=== PATIENT | male | born 1955 | race Caucasian/White ===

== ENCOUNTER 2018-02-27 02:56 | Emergency (ER) | payer OTHER ==
[2018-02-27 03:25] LABS: HEMATOCRIT 37.7 % (42.0-52.0); HEMOGLOBIN 12.8 g/dl (13.5-17.5); MEAN CORPUSCULAR HEMOGLOBIN 30.3 pg (27.0-33.0); MEAN CORPUSCULAR VOLUME 89.3 fl (80.0-96.0); PLATELET COUNT, AUTOMATED 299 10^3/uL (150-450); RED BLOOD COUNT 4.22 10^6/uL (4.30-6.10); RED CELL DISTRIBUTION WIDTH 13.1 % (11.5-14.5); WHITE BLOOD COUNT 10.8 10^3/uL (4.0-10.0)
[2018-02-27 03:44] LABS: AMPHETAMINES LEVEL URINE NEGATIVE (NEGATIVE); BARBITURATES URINE NEGATIVE (NEGATIVE); BENZODIAZEPINES URINE NEGATIVE (NEGATIVE); CANNABINOIDS URINE NEGATIVE (NEGATIVE); COCAINE METABOLITE URINE NEGATIVE (NEGATIVE); METHADONE URINE NEGATIVE (NEGATIVE); OPIATES URINE NEGATIVE (NEGATIVE); PHENCYCLIDINE URINE NEGATIVE (NEGATIVE)
[2018-02-27 03:56] LABS: ALBUMIN 3.9 GM/DL (3.2-5.2); ALBUMIN/GLOBULIN RATIO 1.05 (1.00-1.93); ALKALINE PHOSPHATASE 49 U/L (45-117); ALT/SGPT 21 U/L (12-78); ANION GAP 13 MEQ/L (8-16); AST/SGOT 20 U/L (7-37); BILIRUBIN,DIRECT < 0.1 MG/DL (0.0-0.2); BILIRUBIN,TOTAL 0.3 MG/DL (0.2-1.0); BLOOD UREA NITROGEN 17 MG/DL (7-18); CARBON DIOXIDE LEVEL 21 MEQ/L (21-32); CHLORIDE LEVEL 105 MEQ/L (98-107); CREATININE FOR GFR 1.47 MG/DL (0.70-1.30); ETHYL ALCOHOL (ETHANOL) 0.134 % (0.000-0.010); GLOMERULAR FILTRATION RATE 51.5 (>49); GLUCOSE, FASTING 93 MG/DL (70-100); POTASSIUM SERUM 3.8 MEQ/L (3.5-5.1); SALICYLATE LEVEL 6.5 MG/DL (5.0-30.0); SODIUM LEVEL 139 MEQ/L (136-145); TOTAL PROTEIN 7.6 GM/DL (6.4-8.2)
[2018-02-27 03:59] LABS: ACETAMINOPHEN LEVEL < 2.0 UG/ML (10.0-30.0)
[2018-02-27 16:15] LABS: ETHYL ALCOHOL (ETHANOL) < 0.003 % (0.000-0.010)
[2018-02-27] MEDS: TERAZOSIN 5 MG CAP PO (21:00)
[2018-02-27] MEDS: GABAPENTIN 300 MG CAP PO (21:17)
[2018-02-27] MEDS: OMEPRAZOLE 20 MG CAP PO (21:17)
[2018-02-27] MEDS: TOPIRAMATE (TopAMAX) 100 MG TAB PO (21:17)
[2018-02-27] MEDS: MIRTAZAPINE 15 MG TAB PO (21:17)
== END 2018-02-28 08:18 ==
LOC: M ED 02-28 08:18
DX: F33.9 Major depressive disorder, recurrent, unspecified (principal); F10.129 Alcohol abuse with intoxication, unspecified; R45.851 Suicidal ideations; E11.9 Type 2 diabetes mellitus without complications; I10 Essential (primary) hypertension; G47.33 Obstructive sleep apnea (adult) (pediatric); N40.0 Benign prostatic hyperplasia without lower urinary tract symptoms; M54.5 Low back pain; G89.29 Other chronic pain; F17.200 Nicotine dependence, unspecified, uncomplicated; Z79.82 Long term (current) use of aspirin; Z79.899 Other long term (current) drug therapy
CPT/HCPCS: 93005

== ENCOUNTER 2018-11-17 09:27 | Day surgery (SDC) | payer OTHER ==
[~2018-11-17] VITALS: Ht 157.5 cm; Wt 73.0 kg
[~2018-11-17 09:27] MED LIST: ACET500C PO; AMLO10TA5 PO; AMLO25TA PO; ASPI81TA85 PO; ATOR40TA75 PO; CYCL10TA PO; FENO145T13 PO; FINA5TAB2 PO; FLUN25SP; FOLI1TAB11 PO; GABA-843 PO; HYDR25TAB PO; LISI10TA4 PO; LISI40TAB PO; LORA-243 PO; MAGN400T5 PO; METO10TA2 PO; MIRT30TA3 PO; MULTTAB63 PO; NS 1,000 ML IV ONE; OMEG100011 PO; OMEP20CA3 PO; PATIENT COMMENTS; ROSU40TA3 PO; SERT-155 PO; TERA10CA3 PO; THIA100T7 PO; TOPI100T9 PO; TYLE325C PO; VITA-182 PO; folic acid; vitamin b1
[2018-11-17] MEDS ORDERED: LIDOCAINE 2% INJ 100 MG/5 ML SDV (FOR ANES.) As Ordered ONE (10:39)
[2018-11-17] MEDS ORDERED: PROPOFOL 200 MG/20 ML VIAL As Ordered ONE (10:39)
--- NOTE | 2018-11-17 10:51 | ROOR ---
Patient Name: Kiran Maldonado Procedure Date: 11/17/2018 10:25 AM Date of : 1955 Age: 62 Room: [facility] Gender: Male Note Status: Finalized Procedure: Colonoscopy Indications: Screening for colorectal malignant neoplasm Providers: DO Mario Klein MD: Luis Brice Md Requesting Provider: Medicines: Propofol per Anesthesia Complications: No immediate complications. Procedure: Pre-Anesthesia Assessment: - Prior to the procedure, a History and Physical was performed, and patient medications and allergies were reviewed. The patient is competent. The risks and benefits of the procedure and the sedation options and risks were discussed with the patient. All questions were answered and informed consent was obtained. Patient identification and proposed procedure were verified by the physician, the nurse, the set o type operator and the controls technician in the endoscopy suite. Mental Status Examination: alert and oriented. Airway Examination: normal oropharyngeal airway and neck mobility. Respiratory Examination: clear to auscultation. CV Examination: normal. Prophylactic Antibiotics: The patient does not require prophylactic antibiotics. Prior Anticoagulants: The patient has taken no previous anticoagulant or antiplatelet agents. ASA Grade Assessment: II - A patient with mild systemic disease. After reviewing the risks and benefits, the patient was deemed in satisfactory condition to undergo the procedure. The anesthesia plan was to use monitored anesthesia care (MAC). Immediately prior to administration of medications, the patient was re-assessed for adequacy to receive sedatives. The heart rate, respiratory rate, oxygen saturations, blood pressure, adequacy of pulmonary ventilation, and response to care were monitored throughout the procedure. The physical status of the patient was re-assessed after the procedure. The Colonoscope was introduced through the anus and advanced to the cecum, identified by appendiceal orifice and ileocecal valve. The colonoscopy was performed without difficulty. The patient tolerated the procedure well. Findings: Multiple small and large-mouthed diverticula were found in the sigmoid colon. The perianal exam findings include non-thrombosed internal hemorrhoids and internal hemorrhoids (Grade I). The exam was otherwise without abnormality on direct and retroflexion views. Impression: - Diverticulosis in the sigmoid colon. - Non-thrombosed internal hemorrhoids and internal hemorrhoids (Grade I) found on perianal exam. - The examination was otherwise normal on direct and retroflexion views. - No specimens collected. Recommendation: - Patient has a contact number available for emergencies. The signs and symptoms of potential delayed complications were discussed with the patient. Return to normal activities tomorrow. Written discharge instructions were provided to the patient. - Repeat colonoscopy in 5-10 years for screening purposes. - Return to my office PRN. Yariel Arnold DO 11/17/2018 10:50:55 AM This report has been signed electronically. Number of Addenda: 0 Note Initiated On: 11/17/2018 10:25 AM Estimated Blood Loss: Estimated blood loss: none.
[2018-11-17 14:28] VITALS: BP 148/89
== END 2018-11-17 15:00 | disposition home or self-care (01) ==
LOC: M OPP 09:27
PROVIDERS: ATTEND Surgery
DX: Z12.11 Encounter for screening for malignant neoplasm of colon (principal); K64.0 First degree hemorrhoids; K57.30 Diverticulosis of large intestine without perforation or abscess without bleeding; G47.30 Sleep apnea, unspecified; Z79.82 Long term (current) use of aspirin; Z79.899 Other long term (current) drug therapy; F17.210 Nicotine dependence, cigarettes, uncomplicated

== ENCOUNTER → 2020-04-27 | Outpatient (CLI) | payer OTHER ==
[~2020-04-27] MED LIST changes: -AMLO10TA5 PO; +AMLO1TAB25 PO; -ASPI81TA85 PO; +ASPI81TA86 PO; +CYCL-707 PO; -CYCL10TA PO; -FENO145T13 PO; +FENO145T7 PO; +GABA-282 PO; -GABA-843 PO; +HYDR-2541 PO; -HYDR25TAB PO; +LISI10TA22 PO; -LISI10TA4 PO; +LISI40TA52 PO; -LISI40TAB PO; -NS 1,000 ML IV ONE; +OMEP1CAP73 PO; -OMEP20CA3 PO; -ROSU40TA3 PO; +ROSU40TA4 PO; -SERT-155 PO; +SERT50TA29 PO
--- NOTE | 2020-04-27 08:40 | REP ---
CT cervical spine: 04/27/2020. Indication: Neck pain. Technique: Unenhanced axial CT images of the cervical spine were performed with coronal and sagittal reconstructions provided. Comparison: No previous CT cervical spine images are available for direct comparison. Findings: There is no acute fracture, subluxation or dislocation. Disc space narrowing is present throughout most pronounced at C5/C6. No lytic or blastic lesions are present. Multilevel spondylosis is present with diffuse disc osteophytes at each level most pronounced at C5/C6 without severe spinal canal narrowing. There does appear to be narrowing of the neural foramina bilaterally at C5/C6. Clinical correlation with radicular level is required. Impression: No acute osseous injury of the cervical spine. Spondylosis most pronounced at C5/C6 without severe narrowing of the spinal canal / cord compression detected. Electronically Signed by Thiago Felix DO 04/27/2020 08:32 A
--- NOTE | 2020-04-27 09:25 | REP ---
CT lumbar spine: 04/27/2020. Indication: Low back pain. Technique: Unenhanced axial CT images of the lumbar spine were performed with sagittal and coronal reconstructions provided. Comparison: No previous CT lumbar spine images are available for direct comparison. Findings: There is no acute fracture, subluxation or dislocation. Vacuum disc phenomenon, disc space narrowing and endplate degenerative changes are present at L3/L4. There does appear to be moderate to severe left greater than right recess narrowing at the L3/L4 level. The neural foramina appear patent throughout. Aortoiliac atherosclerotic disease is present. Impression: No acute osseous injury of the lumbar spine. Spondylosis most pronounced at L3/L4. Electronically Signed by Thiago Felix DO 04/27/2020 09:15 A
== END ==
LOC: M RAD 06:38
PROVIDERS: ATTEND Internal Medicine
DX: M51.15 Intervertebral disc disorders with radiculopathy, thoracolumbar region (principal); M47.25 Other spondylosis with radiculopathy, thoracolumbar region; I70.0 Atherosclerosis of aorta; M47.812 Spondylosis without myelopathy or radiculopathy, cervical region

== ENCOUNTER → 2020-12-06 | Outpatient (CLI) | payer OTHER ==
[~2020-12-06] MED LIST changes: -LISI10TA22 PO; +LISI10TA4 PO
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
== END ==
LOC: M PAIN 14:00
PROVIDERS: ATTEND Nurse Practitioner Family
DX: M54.2 Cervicalgia (principal); M54.40 Lumbago with sciatica, unspecified side; D50.9 Iron deficiency anemia, unspecified; G47.30 Sleep apnea, unspecified; F17.210 Nicotine dependence, cigarettes, uncomplicated; K21.9 Gastro-esophageal reflux disease without esophagitis; Z86.59 Personal history of other mental and behavioral disorders; Z88.8 Allergy status to other drugs, medicaments and biological substances; Z79.82 Long term (current) use of aspirin; Z79.899 Other long term (current) drug therapy

== ENCOUNTER → 2020-12-26 | Outpatient (CLI) | payer OTHER ==
[~2020-12-26] MED LIST changes: +LISI10TA22 PO; -LISI10TA4 PO
--- NOTE | 2020-12-26 10:35 | REPVR ---
PROCEDURE INFORMATION: Exam: MR Cervical Spine Without Contrast Exam date and time: 12/26/2020 9:33 AM Age: 65 years old Clinical indication: Pain; Cervicalgia; Additional info: Cervicalgia, lbp of multiple sites w/ sciatica TECHNIQUE: Imaging protocol: Multiplanar magnetic resonance images of the cervical spine without contrast. COMPARISON: CT Spine,cervical w/o contrast 04/27/2020 7:21 AM FINDINGS: Vertebrae: There is 2 mm of grade 1 anterolisthesis of C3 with respect to C4. There is 2 mm of grade 1 retrolisthesis of C4 with respect to C5 and C5 with respect to C6. Normal vertebral body alignment is otherwise preserved. Spinal cord: Normal signal. No cord compression. C2-C3: There is a shallow disc osteophyte complex. There is mild to moderate left facet hypertrophy. There is moderate left neural foraminal narrowing. C3-C4: There is a diffuse disc osteophyte complex/uncovering related to listhesis. There is moderate facet hypertrophy. There is severe bilateral neural foraminal narrowing. C4-C5: There is a diffuse disc osteophyte complex with a prominent left subarticular component. This effaces the left lateral recess, with potential compromise of the left C6 nerve root. There is moderate facet hypertrophy. There is moderate right and severe left neural foraminal narrowing. C5-C6: There is a diffuse disc osteophyte complex. There is moderate facet hypertrophy. There is severe bilateral neural foraminal narrowing. There is mild canal stenosis. C6-C7: There is a diffuse disc osteophyte complex. There is moderate facet hypertrophy. There is severe left neural foraminal narrowing. C7-T1: No significant disc disease. No significant spinal stenosis. Soft tissues: Unremarkable. Vertebral arteries: Expected flow voids in the vertebral arteries. IMPRESSION: Degenerative disc disease and spondylosis, with multilevel moderate to severe neural foraminal narrowing. At C4/5, disc osteophyte complex with prominent left subarticular component results in potential compromise of the left C6 nerve root within the lateral recess. Electronically signed by: Larissa Hernandez On 12/26/2020 10:35:19 AM
--- NOTE | 2020-12-26 11:04 | REPVR ---
PROCEDURE INFORMATION: Exam: MR Lumbar Spine Without Contrast. Exam date and time: 12/26/2020 9:33 AM Age: 65 years old Clinical indication: Pain; Lumbago with sciatica; Bilateral; Additional info: Cervicalgia, lbp of multiple sites w/ sciatica TECHNIQUE: Imaging protocol: Multiplanar magnetic resonance images of the lumbar spine without intravenous contrast. COMPARISON: CT Spine, lumbar w/o contrast 04/27/2020 7:25 AM FINDINGS: Vertebrae: There is no fracture or listhesis. Normal vertebral body alignment and heights are preserved. There is severe intervertebral disc space loss at L3/4. Spinal cord: Normal signal. No cord compression. L1-L2: There is shallow disc bulging. There is moderate facet hypertrophy. The spinal canal and neural foramina are patent. L2-L3: There is diffuse disc bulging. There is moderate facet hypertrophy. There is mild bilateral neural foraminal narrowing. There is mild canal stenosis. L3-L4: There is a diffuse disc bulge. There is moderate facet and ligamentous hypertrophy. There is moderate bilateral neural foraminal narrowing. There is mild canal stenosis. L4-L5: There is diffuse disc bulging. There is moderate facet hypertrophy. There is moderate right and mild left neural foraminal narrowing. L5-S1: There is diffuse disc bulging. There is mild facet hypertrophy. There is mild bilateral neural foraminal narrowing. Soft tissues: Unremarkable. IMPRESSION: Degenerative disc disease and spondylosis. Changes contribute to multilevel [id number] neural foraminal narrowing and multilevel mild acquired canal stenosis. Electronically signed by: Larissa Hernandez On 12/26/2020 11:04:21 AM
== END ==
LOC: M RAD 08:11
PROVIDERS: ATTEND Nurse Practitioner Family
DX: M47.22 Other spondylosis with radiculopathy, cervical region (principal); M54.40 Lumbago with sciatica, unspecified side; M54.2 Cervicalgia

== ENCOUNTER → 2021-01-09 | Outpatient (CLI) | payer OTHER ==
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
== END ==
LOC: M PAIN 13:45
PROVIDERS: ATTEND Nurse Practitioner Family
DX: M54.12 Radiculopathy, cervical region (principal); M48.02 Spinal stenosis, cervical region; G89.29 Other chronic pain; D50.9 Iron deficiency anemia, unspecified; G47.30 Sleep apnea, unspecified; K21.9 Gastro-esophageal reflux disease without esophagitis; F17.210 Nicotine dependence, cigarettes, uncomplicated; Z86.59 Personal history of other mental and behavioral disorders; Z88.8 Allergy status to other drugs, medicaments and biological substances; Z79.82 Long term (current) use of aspirin; Z79.899 Other long term (current) drug therapy

== ENCOUNTER → 2021-01-11 | Outpatient (CLI) | payer OTHER | LOC: M LABSMTC 09:39 | PROVIDERS: ATTEND Anesthesiology | DX: Z11.52 Encounter for screening for COVID-19 (principal) ==

== ENCOUNTER → 2021-01-16 | Outpatient (CLI) | payer OTHER ==
[~2021-01-16] MED LIST changes: +ISOVUE-M 300 61% 15ML VIAL As Ordered ONE; +LIDOCAINE 1% SDV 30ML VIAL As Ordered ONE; +NORCO, ANEXSIA 5/325MG TABLET (HYDROcodone/ACETAMINOPHEN) As Ordered ONE; +diazePAM 5MG TABLET As Ordered ONE; +methylPREDNISolone SUSP 40MG/ML 1ML VIAL (DEPO MEDROL) As Ordered ONE
--- NOTE | 2021-01-16 11:26 | REP ---
INDICATION: TICO. COMPARISON: None. TECHNIQUE: Five C-arm views cervical spine performed. FINDINGS: A needle is seen at the junction of the cervical and thoracic spine. Small amount of contrast is injected. IMPRESSION: 17 seconds fluoroscopy time utilized. <Electronically signed by Yariel Garcia > 01/16/21 1123
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
== END ==
LOC: M PAIN 10:40
PROVIDERS: ATTEND Anesthesiology
DX: M50.10 Cervical disc disorder with radiculopathy, unspecified cervical region (principal); G47.30 Sleep apnea, unspecified; F17.210 Nicotine dependence, cigarettes, uncomplicated; Z86.59 Personal history of other mental and behavioral disorders
CPT/HCPCS: 62321; J1030; Q9967

== ENCOUNTER → 2021-01-30 | Outpatient (CLI) | payer OTHER ==
[~2021-01-30] MED LIST changes: -ISOVUE-M 300 61% 15ML VIAL As Ordered ONE; -LIDOCAINE 1% SDV 30ML VIAL As Ordered ONE; -NORCO, ANEXSIA 5/325MG TABLET (HYDROcodone/ACETAMINOPHEN) As Ordered ONE; -diazePAM 5MG TABLET As Ordered ONE; -methylPREDNISolone SUSP 40MG/ML 1ML VIAL (DEPO MEDROL) As Ordered ONE
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
== END ==
LOC: M PAIN 10:30
PROVIDERS: ATTEND Nurse Practitioner Family
DX: G89.29 Other chronic pain (principal); M50.10 Cervical disc disorder with radiculopathy, unspecified cervical region; D50.9 Iron deficiency anemia, unspecified; G47.30 Sleep apnea, unspecified; K21.9 Gastro-esophageal reflux disease without esophagitis; F17.210 Nicotine dependence, cigarettes, uncomplicated; Z86.59 Personal history of other mental and behavioral disorders; Z88.8 Allergy status to other drugs, medicaments and biological substances; Z79.82 Long term (current) use of aspirin; Z79.899 Other long term (current) drug therapy

== ENCOUNTER → 2022-10-06 | Outpatient (CLI) | payer OTHER | LOC: M RAD 10:23 | PROVIDERS: ATTEND Student in an Organized Health Care Education/Training Program | DX: N28.1 Cyst of kidney, acquired (principal) ==

== ENCOUNTER 2024-02-18 12:20 | Inpatient (IN) | payer OTHER ==
[~2024-02-18] VITALS: Ht 157.5 cm; Wt 72.3 kg
[2024-02-18 13:37] LABS: HEMATOCRIT 46.1 % (42.0-52.0); HEMOGLOBIN 15.2 g/dl (13.5-17.5); MEAN CORPUSCULAR HEMOGLOBIN 28.8 pg (27.0-33.0); MEAN CORPUSCULAR VOLUME 87.5 fl (80.0-96.0); PLATELET COUNT, AUTOMATED 368 10^3/uL (150-450); RED BLOOD COUNT 5.27 10^6/uL (4.30-6.10); WHITE BLOOD COUNT 8.9 10^3/uL (4.0-10.0)
[2024-02-18 13:47] LABS: ETHYL ALCOHOL (ETHANOL) 0.003 % (0.000-0.010)
[2024-02-18 13:49] LABS: SALICYLATE LEVEL < 3.0 MG/DL (<30)
[2024-02-18 13:50] LABS: ALBUMIN 3.7 G/DL (3.2-5.2); ALKALINE PHOSPHATASE 78 U/L (46-116); ALT/SGPT 21 U/L (7.0-40); AST/SGOT 18 U/L (<34); BILIRUBIN,DIRECT < 0.1 MG/DL (<0.4); BILIRUBIN,TOTAL 0.3 MG/DL (0.3-1.2); BLOOD UREA NITROGEN 15 MG/DL (9-23); CALCIUM LEVEL 9.6 MG/DL (8.3-10.6); CARBON DIOXIDE LEVEL 27 MMOL/L (20-31); CHLORIDE LEVEL 111 MMOL/L (98-107); CREATININE FOR GFR 0.83 MG/DL (0.70-1.30); GLOMERULAR FILTRATION RATE > 60.0 (>49); GLUCOSE, FASTING 120 MG/DL (74-106); POTASSIUM SERUM 4.3 MMOL/L (3.5-5.1); SODIUM LEVEL 141 MMOL/L (136-145); TOTAL PROTEIN 6.8 G/DL (5.7-8.2)
[2024-02-18 13:51] LABS: THYROID STIMULATING HORMONE 1.074 uIU/ML (0.55-4.78)
[2024-02-18] MEDS ORDERED: TRAZ-257 PO (13:55)
[2024-02-18] MEDS ORDERED: LISI10TA22 PO (13:55)
[2024-02-18] MEDS ORDERED: DULO1CAP6 PO (13:55)
[2024-02-18 14:00] LABS: AMPHETAMINES LEVEL URINE NEGATIVE (NEGATIVE)
[2024-02-18] MEDS ORDERED: HOME MED LIST COMPLETE! XX SCH (14:00)
[2024-02-18 14:01] LABS: BARBITURATES URINE NEGATIVE (NEGATIVE); BENZODIAZEPINES URINE NEGATIVE (NEGATIVE); COCAINE METABOLITE URINE NEGATIVE (NEGATIVE); METHADONE URINE NEGATIVE (NEGATIVE); OPIATES URINE NEGATIVE (NEGATIVE); PHENCYCLIDINE URINE NEGATIVE (NEGATIVE)
[2024-02-18 14:02] LABS: CANNABINOIDS URINE POSITIVE (NEGATIVE)
[2024-02-18] MEDS ORDERED: NICOTINE 21MG/24HR 1 EA TRANSDERMAL TD PRN (18:25)
[2024-02-18] MEDS: OMEPRAZOLE 20MG CAP PO SCH (20:16)
[2024-02-18] MEDS: ONDANSETRON 4MG TAB PO ONE (20:16)
[2024-02-18] MEDS: traZODone 100 MG TAB PO SCH (20:17)
[2024-02-18] MEDS ORDERED: OMEPRAZOLE 20MG CAP PO SCH (21:00)
[2024-02-18] MEDS ORDERED: traZODone 100 MG TAB PO SCH (21:00)
[2024-02-18] MEDS: ACETAMINOPHEN TAB 650MG DOSE (2X325MG) PO PRN (23:31)
[2024-02-19 00:06] VITALS: BP 154/82; TEMP 98.4; O2SAT 95
[2024-02-19 05:36] VITALS: BP 124/76; TEMP 98.6; O2SAT 97
[2024-02-19] MEDS ORDERED: DULoxetine 30MG CAPSULE (CYMBALTA) PO SCH (09:00)
[2024-02-19] MEDS: DULoxetine 30MG CAPSULE (CYMBALTA) PO SCH (09:39)
[2024-02-19 10:40] VITALS: BP 150/90
[2024-02-19] MEDS: ONDANSETRON 4MG ORAL DISINTEGRATING TAB PO ONE (11:40)
[2024-02-19 16:12] VITALS: BP 150/80; TEMP 98.6; O2SAT 97
[2024-02-19] MEDS: MAALOX 30 ML SUSP *UDC PO PRN (18:25)
[2024-02-19 21:09] VITALS: BP 148/78
[2024-02-20] MEDS: diphenhydrAMINE 25MG CAP PO PRN (00:22)
[2024-02-20 06:38] VITALS: BP 136/78; TEMP 98.1; O2SAT 100
[2024-02-20] MEDS: PREVNAR-20 VACCINE 0.5ML SYRINGE IM.IMMUN ONE (09:05)
[2024-02-20] MEDS: DULoxetine 30MG CAPSULE (CYMBALTA) PO SCH (09:07)
[2024-02-20] MEDS: ONDANSETRON 4MG ORAL DISINTEGRATING TAB SL PRN (11:51)
[2024-02-20 12:13] VITALS: BP 160/90
[2024-02-20] MEDS: lisinopriL 5 MG TAB PO SCH (13:32)
[2024-02-20 16:11] VITALS: BP 137/75; TEMP 98.9; O2SAT 100
[2024-02-20] MEDS: OMEPRAZOLE 20MG CAP PO SCH (20:04)
[2024-02-21 06:32] VITALS: BP 128/67; TEMP 98.4; O2SAT 98
[2024-02-21 16:15] VITALS: BP 156/88; TEMP 98; O2SAT 97
[2024-02-21] MEDS: IBUPROFEN 400MG TAB PO PRN (19:55)
[2024-02-22 06:17] VITALS: BP 133/74; TEMP 97.7; O2SAT 98
[2024-02-22 17:15] VITALS: BP 140/79; TEMP 97.5; O2SAT 100
[2024-02-23 06:11] VITALS: BP 129/73; TEMP 98; O2SAT 99
[2024-02-23] MEDS: MOM 30ML SUSPENSION UDC PO PRN (16:46)
[2024-02-23 17:21] VITALS: BP 152/74; TEMP 97.3; O2SAT 94
[2024-02-24 06:13] VITALS: BP 142/76; TEMP 98.8; O2SAT 98
[2024-02-24 17:10] VITALS: BP 143/68; TEMP 97.6; O2SAT 98
[2024-02-25 06:19] VITALS: BP 160/81; TEMP 98.8; O2SAT 96
[2024-02-25 17:33] VITALS: BP 165/84; TEMP 97.3; O2SAT 99
[2024-02-26] MEDS: diphenhydrAMINE 50MG CAP PO PRN (00:15)
[2024-02-26 06:08] VITALS: BP 155/88; TEMP 98.3; O2SAT 96
[2024-02-26 16:19] VITALS: BP 138/77; TEMP 98.1; O2SAT 98
[2024-02-26 16:20] VITALS: BP 147/72; TEMP 98.3; O2SAT 100
[2024-02-26 21:43] VITALS: BP 138/76
[2024-02-27 06:09] VITALS: BP 146/77; TEMP 97.6; O2SAT 97
[2024-02-27 14:58] VITALS: BP 114/81; TEMP 98.4; O2SAT 98
[2024-02-28 06:18] VITALS: BP 125/75; TEMP 98.2; O2SAT 96
[2024-02-28 16:00] VITALS: BP 124/80; TEMP 97.8; O2SAT 98
[2024-02-29 06:20] VITALS: BP 114/72; TEMP 98.2; O2SAT 95
[2024-02-29 08:11] VITALS: BP 130/71
[2024-02-29 17:14] VITALS: BP 151/88; TEMP 98.3; O2SAT 96
[2024-03-01 06:10] VITALS: BP 115/71; TEMP 97.7; O2SAT 97
[2024-03-01 08:14] VITALS: BP 129/85
[2024-03-01] MEDS ORDERED: LISI5TAB11 PO (09:19)
[2024-03-01] MEDS ORDERED: AMLO1TAB25 PO (09:19)
[2024-03-01] MEDS ORDERED: LISI10TA22 PO (09:19)
[2024-03-01] MEDS ORDERED: DULO1CAP6 PO (09:19)
[2024-03-01] MEDS ORDERED: TRAZ-257 PO (09:19)
[2024-03-01] MEDS ORDERED: OMEP1CAP73 PO (09:19)
== END 2024-03-01 12:57 | disposition home or self-care (01) | DRG 881 ==
LOC: M ED 12:20 → M ED INP 18:24 → M PSY 22:29
PROVIDERS: ADMIT Student in an Organized Health Care Education/Training Program; ATTEND Student in an Organized Health Care Education/Training Program
DX: F32.A Depression, unspecified (principal); R45.851 Suicidal ideations; F32.9 Major depressive disorder, single episode, unspecified; Z79.899 Other long term (current) drug therapy; I12.9 Hypertensive chronic kidney disease with stage 1 through stage 4 chronic kidney disease, or unspecified chronic kidney disease; K57.90 Diverticulosis of intestine, part unspecified, without perforation or abscess without bleeding; N18.30 Chronic kidney disease, stage 3 unspecified; K21.9 Gastro-esophageal reflux disease without esophagitis; N40.0 Benign prostatic hyperplasia without lower urinary tract symptoms; G47.30 Sleep apnea, unspecified; E78.5 Hyperlipidemia, unspecified; M54.2 Cervicalgia; M54.50 Low back pain, unspecified; K64.8 Other hemorrhoids; Z87.891 Personal history of nicotine dependence

== ENCOUNTER 2024-11-15 15:45 | Emergency (ER) | payer OTHER ==
[~2024-11-15] VITALS: Ht 157.5 cm; Wt 65.9 kg
[~2024-11-15 15:45] MED LIST changes: +DULO1CAP6 PO; +GABA-1172 PO; -GABA-282 PO; +LISI5TAB11 PO; -ROSU40TA4 PO; +ROSU40TA81 PO; +TRAZ-257 PO
[2024-11-15 16:45] LABS: BASO # 0.1 10^3/uL (0.0-0.2); BASO % 0.4 % (0.0-1.0); EOS # 0.1 10^3/uL (0.0-0.5); EOS % 0.7 % (0.0-3.0); HEMATOCRIT 39.8 % (42.0-52.0); HEMOGLOBIN 13.9 g/dl (13.5-17.5); LYMPH % 8.3 % (24.0-44.0); MEAN CORPUSCULAR HEMOGLOBIN 30.7 pg (27.0-33.0); MEAN CORPUSCULAR HGB CONC 34.9 g/dl (32.0-36.5); MEAN CORPUSCULAR VOLUME 87.9 fl (80.0-96.0); MONO % 8.1 % (2.0-8.0); NEUTROPHILS # 9.7 10^3/uL (1.5-8.5); NEUTROPHILS % 82.2 % (36.0-66.0); PLATELET COUNT, AUTOMATED 334 10^3/uL (150-450); RED BLOOD COUNT 4.53 10^6/uL (4.30-6.10); WHITE BLOOD COUNT 11.8 10^3/uL (4.0-10.0)
[2024-11-15] MEDS: HALOPERIDOL LACTATE 5MG/ML VIAL IV ONE (17:06)
[2024-11-15 17:12] LABS: LIPASE 36 U/L (12-53)
[2024-11-15 17:15] LABS: ALBUMIN 3.7 G/DL (3.2-5.2); ALKALINE PHOSPHATASE 63 U/L (40-129); ALT/SGPT 22 U/L (7.0-40); AST/SGOT 28 U/L (<34); BILIRUBIN,DIRECT 0.2 MG/DL (<0.4); BILIRUBIN,TOTAL 0.8 MG/DL (0.3-1.2); BLOOD UREA NITROGEN 24 MG/DL (9-23); CALCIUM LEVEL 9.7 MG/DL (8.3-10.6); CARBON DIOXIDE LEVEL 30 MMOL/L (20-31); CHLORIDE LEVEL 103 MMOL/L (98-107); CREATININE FOR GFR 0.77 MG/DL (0.70-1.30); GLOMERULAR FILTRATION RATE > 60.0 (>49); GLUCOSE, FASTING 141 MG/DL (74-106); POTASSIUM SERUM 3.4 MMOL/L (3.5-5.1); SODIUM LEVEL 139 MMOL/L (136-145); TOTAL PROTEIN 6.8 G/DL (5.7-8.2)
[2024-11-15] MEDS ORDERED: ISOVUE-370 76% 100ML VIAL As Ordered ONE (17:29)
[2024-11-15] MEDS: NS (Normal Saline) 0.9% 1,000 ML IV ONE (17:58)
[2024-11-15] MEDS ORDERED: TRAZ-257 PO (18:09)
[2024-11-15 18:55] VITALS: BP 162/85; TEMP 98.7; O2SAT 98
== END 2024-11-15 19:01 | disposition home or self-care (01) ==
LOC: M ED 15:45 → EDBD 15:45 → M ED 19:01
DX: R11.2 Nausea with vomiting, unspecified (principal); F12.188 Cannabis abuse with other cannabis-induced disorder; R00.1 Bradycardia, unspecified; E78.5 Hyperlipidemia, unspecified; I10 Essential (primary) hypertension; N18.30 Chronic kidney disease, stage 3 unspecified; F32.A Depression, unspecified; G47.30 Sleep apnea, unspecified; F12.10 Cannabis abuse, uncomplicated; F10.10 Alcohol abuse, uncomplicated; Z79.811 Long term (current) use of aromatase inhibitors; Z79.899 Other long term (current) drug therapy
CPT/HCPCS: 74177; 80048; 80076; 83690; 85025; 93005; 96360; 99284; J1630; Q9967

== ENCOUNTER → 2025-06-16 | Outpatient (CLI) | payer OTHER ==
[~2025-06-16] MED LIST changes: +BUSP15TA47 PO; +THIA100TA PO; +TOPI-257 PO; -TOPI100T9 PO; +TRAZ-252 PO
== END ==
LOC: M PLAIMG 12:40
PROVIDERS: ATTEND Family Medicine
DX: M54.2 Cervicalgia (principal); Z98.1 Arthrodesis status; M47.813 Spondylosis without myelopathy or radiculopathy, cervicothoracic region; M51.24 Other intervertebral disc displacement, thoracic region; M48.54XA Collapsed vertebra, not elsewhere classified, thoracic region, initial encounter for fracture

== ENCOUNTER 2025-07-02 14:59 | Emergency (ER) | payer OTHER ==
[~2025-07-02] VITALS: Ht 157.5 cm; Wt 69.0 kg
[2025-07-02 15:02] VITALS: TEMP 97.1
[2025-07-02 16:02] LABS: BASO # 0.1 10^3/uL (0.0-0.2); BASO % 1.2 % (0.0-1.0); EOS # 0.3 10^3/uL (0.0-0.5); EOS % 4.0 % (0.0-3.0); LYMPH # 1.1 10^3/uL (1.5-5.0); LYMPH % 14.0 % (24.0-44.0); MONO # 0.6 10^3/uL (0.0-0.8); MONO % 7.3 % (2.0-8.0); NEUTROPHILS # 5.9 10^3/uL (1.5-8.5); NEUTROPHILS % 73.3 % (36.0-66.0); PLATELET COUNT, AUTOMATED 290 10^3/uL (150-450)
[2025-07-02 16:14] LABS: INR 0.89
[2025-07-02 16:38] LABS: ALT/SGPT 31 U/L (7.0-40); AST/SGOT 55 U/L (<34); CALCIUM LEVEL 9.6 MG/DL (8.3-10.6); CARBON DIOXIDE LEVEL 25 MMOL/L (20-31); CHLORIDE LEVEL 106 MMOL/L (98-107); CK-MB VALUE MASS 4.9 NG/ML (<3.6); CPK CREATINE PHOSPHOKINASE 234 U/L (46-171); CREATININE FOR GFR 0.85 MG/DL (0.70-1.30); GLOMERULAR FILTRATION RATE > 90.0 (>42); MB/CK RELATIVE INDEX 2.09 (< OR =4); POTASSIUM SERUM 4.9 MMOL/L (3.5-5.1); SODIUM LEVEL 140 MMOL/L (136-145)
[2025-07-02] MEDS: ACETAMINOPHEN 500 MG TAB PO ONE (16:52)
[2025-07-02 17:30] VITALS: BP 162/86; O2SAT 98
[2025-07-02] MEDS ORDERED: ACET650T61 PO (18:21)
== END 2025-07-02 18:44 | disposition home or self-care (01) ==
LOC: M ED 14:59
DX: M54.12 Radiculopathy, cervical region (principal); I10 Essential (primary) hypertension; E78.5 Hyperlipidemia, unspecified; K21.9 Gastro-esophageal reflux disease without esophagitis; F32.9 Major depressive disorder, single episode, unspecified; Z79.1 Long term (current) use of non-steroidal anti-inflammatories (NSAID); Z79.899 Other long term (current) drug therapy; Z86.718 Personal history of other venous thrombosis and embolism

== ENCOUNTER 2025-07-27 01:35 | Emergency (ER) | payer OTHER ==
[~2025-07-27] VITALS: Ht 157.5 cm; Wt 71.0 kg
[~2025-07-27 01:35] MED LIST changes: +ACET650T61 PO
[2025-07-27 02:48] LABS: PLATELET COUNT, AUTOMATED 297 10^3/uL (150-450)
[2025-07-27 02:52] LABS: AMPHETAMINES LEVEL URINE NEGATIVE (NEGATIVE); BARBITURATES URINE NEGATIVE (NEGATIVE); BENZODIAZEPINES URINE NEGATIVE (NEGATIVE); COCAINE METABOLITE URINE NEGATIVE (NEGATIVE); METHADONE URINE NEGATIVE (NEGATIVE); OPIATES URINE NEGATIVE (NEGATIVE); PHENCYCLIDINE URINE NEGATIVE (NEGATIVE)
[2025-07-27 02:53] LABS: ALT/SGPT 27 U/L (7.0-40); AST/SGOT 28 U/L (<34); CALCIUM LEVEL 10.1 MG/DL (8.3-10.6); CARBON DIOXIDE LEVEL 30 MMOL/L (20-31); CHLORIDE LEVEL 104 MMOL/L (98-107); CREATININE FOR GFR 1.04 MG/DL (0.70-1.30); GLOMERULAR FILTRATION RATE 77.3 (>42); POTASSIUM SERUM 4.2 MMOL/L (3.5-5.1); SALICYLATE LEVEL < 3.0 MG/DL (<30); SODIUM LEVEL 139 MMOL/L (136-145)
[2025-07-27 02:58] LABS: CANNABINOIDS URINE POSITIVE (NEGATIVE)
[2025-07-27 04:04] LABS: ETHYL ALCOHOL (ETHANOL) < 0.003 % (0.000-0.010)
[2025-07-27] MEDS ORDERED: TRAZ-257 (09:30)
[2025-07-27] MEDS ORDERED: LISI5TAB11 PO (09:30)
[2025-07-27 10:58] VITALS: BP 168/84; TEMP 97.8; O2SAT 97
== END 2025-07-27 11:06 | disposition home or self-care (01) ==
LOC: M ED 01:35
DX: F32.A Depression, unspecified (principal); I10 Essential (primary) hypertension; N18.9 Chronic kidney disease, unspecified; R78.5 Finding of other psychotropic drug in blood; G47.33 Obstructive sleep apnea (adult) (pediatric); G89.4 Chronic pain syndrome; F12.10 Cannabis abuse, uncomplicated; Z87.891 Personal history of nicotine dependence; Z79.1 Long term (current) use of non-steroidal anti-inflammatories (NSAID); Z79.899 Other long term (current) drug therapy

== ENCOUNTER 2025-08-15 16:47 | Emergency (ER) | payer OTHER ==
[~2025-08-15] VITALS: Ht 157.5 cm; Wt 155.0 kg
[~2025-08-15 16:47] MED LIST changes: +TRAZ-257
[2025-08-15 17:06] VITALS: TEMP 99
[2025-08-15 17:33] LABS: BASO # 0.1 10^3/uL (0.0-0.2); BASO % 1.0 % (0.0-1.0); EOS # 0.1 10^3/uL (0.0-0.5); EOS % 0.6 % (0.0-3.0); LYMPH # 0.9 10^3/uL (1.5-5.0); LYMPH % 9.9 % (24.0-44.0); MONO # 0.5 10^3/uL (0.0-0.8); MONO % 5.1 % (2.0-8.0); NEUTROPHILS # 7.7 10^3/uL (1.5-8.5); NEUTROPHILS % 83.0 % (36.0-66.0); PLATELET COUNT, AUTOMATED 360 10^3/uL (150-450)
[2025-08-15 18:01] LABS: INR 0.93
[2025-08-15 18:03] LABS: ALT/SGPT 19 U/L (7.0-40); AST/SGOT 21 U/L (<34); CALCIUM LEVEL 10.2 MG/DL (8.3-10.6); CARBON DIOXIDE LEVEL 27 MMOL/L (20-31); CHLORIDE LEVEL 105 MMOL/L (98-107); CREATININE FOR GFR 0.84 MG/DL (0.70-1.30); GLOMERULAR FILTRATION RATE > 90.0 (>42); POTASSIUM SERUM 4.0 MMOL/L (3.5-5.1); SODIUM LEVEL 141 MMOL/L (136-145)
[2025-08-15 18:26] VITALS: BP 163/84; O2SAT 97
== END 2025-08-15 18:34 | disposition home or self-care (01) ==
LOC: M ED 16:47 → EDBD 16:47 → M ED 18:34
DX: R10.9 Unspecified abdominal pain (principal); F12.10 Cannabis abuse, uncomplicated; R00.1 Bradycardia, unspecified; I10 Essential (primary) hypertension; E78.5 Hyperlipidemia, unspecified; N18.30 Chronic kidney disease, stage 3 unspecified; G47.33 Obstructive sleep apnea (adult) (pediatric); N40.0 Benign prostatic hyperplasia without lower urinary tract symptoms; F32.A Depression, unspecified; Z79.1 Long term (current) use of non-steroidal anti-inflammatories (NSAID); Z79.899 Other long term (current) drug therapy

== ENCOUNTER → 2025-08-17 | Outpatient (CLI) | payer OTHER | LOC: M RAD 13:49 | PROVIDERS: ATTEND Nurse Practitioner Family | DX: Z12.2 Encounter for screening for malignant neoplasm of respiratory organs (principal); Z87.891 Personal history of nicotine dependence; J43.9 Emphysema, unspecified; I25.10 Atherosclerotic heart disease of native coronary artery without angina pectoris ==